=== PATIENT | female | born 1990 | race Caucasian/White ===

== ENCOUNTER 2018-03-10 02:20 | Inpatient (IN) | payer SELFPAY ==
[2018-03-10] MEDS: Lactated Ringers 1,000 ML 50 ML IV ×2 (02:50→03:50)
[2018-03-10 02:52] VITALS: BMI 32.1
--- NOTE | 2018-03-10 03:14 | PCM.HP.OB ---
- Problem List (1) Active labor at term Status: Acute (2) Supervision of normal first Status: Acute History Date of Admission: 03/10/18 Final NANCY: 03/12/18 Gestational age: 39 Weeks and 5 Days History of this : This is a 28 year-old, at 39w5d weeks gestational age presents IAL 6 cm dilated. she has had an uncomplicated with care from a terrazzo layer, Vidya Chopra. Allergies No Known Allergies Allergy (Verified 03/10/18 03:05) Home Medications: Home Medications Ferrous Sulfate [Iron] 325 mg PO DAILY 03/10/18 Folic Acid 03/10/18 Vits [Prenatabs FA ] 03/10/18 Alcohol: None Number of Fetus(es): 1 Heart Tracins moderate variability reactive no decels TOCO Analysis: q4-5 History Past Pregnancies: Past Pregnancies Delivery Date Name GA/Weeks Outcome Route Weight Infant Gender Labor Length Anesthesia Delivery Location Provider FOB Labs: Mom's Problem List Problem Status Onset Code Active labor at term Acute Supervision of normal first Acute Z34.00 Mom's Labs & Results 03/10/18 03/10/18 03/10/18 02:50 02:50 02:50 WBC 10.3 RBC 4.36 Hgb 13.7 Hct 40.2 MCV 92.2 MCH 31.4 MCHC 34.1 RDW 13.1 RDW Differential 44.1 H Plt Count 188 MPV 10.4 Immature Gran % (Auto) 0.200 Neut % (Auto) 73.6 H Lymph % (Auto) 17.3 L [place] % (Auto) 7.4 Eos % (Auto) 1.4 Baso % (Auto) 0.1 Absolute Neuts (auto) 7.6 Absolute Lymphs (auto) 1.79 Total Counted Not Reportable RPR Pending Chlam trachomat DNA PCR Hep Bs Antigen Hepatitis C Ab (EIA) HIV 1&2 Antibody N.gonorrhoeae DNA (PCR) Rubella IgG Antibody Pending Group B Strep DNA Specimen Comment POC Glucose Blood Type Antibody Screen 03/10/18 03/10/18 03/10/18 02:50 02:50 02:50 WBC RBC Hgb Hct MCV MCH MCHC RDW RDW Differential Plt Count MPV Immature Gran % (Auto) Neut % (Auto) Lymph % (Auto) [place] % (Auto) Eos % (Auto) Baso % (Auto) Absolute Neuts (auto) Absolute Lymphs (auto) Total Counted RPR Chlam trachomat DNA PCR Hep Bs Antigen Pending Hepatitis C Ab (EIA) Pending HIV 1&2 Antibody Pending N.gonorrhoeae DNA (PCR) Rubella IgG Antibody Group B Strep DNA Specimen Comment POC Glucose Blood Type Pending Antibody Screen Pending 03/10/18 03/10/18 03/10/18 03:05 03:05 03:31 WBC RBC Hgb Hct MCV MCH MCHC RDW RDW Differential Plt Count MPV Immature Gran % (Auto) Neut % (Auto) Lymph % (Auto) [place] % (Auto) Eos % (Auto) Baso % (Auto) Absolute Neuts (auto) Absolute Lymphs (auto) Total Counted RPR Chlam trachomat DNA PCR Pending Hep Bs Antigen Hepatitis C Ab (EIA) HIV 1&2 Antibody N.gonorrhoeae DNA (PCR) Pending Rubella IgG Antibody Group B Strep DNA Pending Specimen Comment Pending POC Glucose 70 Blood Type Antibody Screen Course Did the patient receive Yes care? Labs Blood Type: A RH: NEGATIVE HbSAg Collected on Admission HIV/AIDS Unknown Group B Strep: Collected on Admission Other Lab Procedures/Results/ labs collected upon admission Comments: Current Obstetrical History Gestational Diabetes No Incompetent Cervix No Infertility No IUGR No Macrosomia No Hypertension/Pre-eclampsia No Placenta Previa/Abruption No PTL/PROM No Uterine anomaly No Oligohydramnios No Polyhydramnios No Multiple gestation No Past Medical History Asthma No Diabetes No Hypertension No Heart disease No Mitral valve prolapse No Neurologic/Seizure disorder/ No Migraines Kidney disease No Liver disease No Varicosities Yes Clotting disorders/Hx of DVT No Thyroid Dysfunction No Other medical diseases No Psychiatric disorders No Major trauma No Abnormal PAP smear No Sleep apnea No Mammogram in the last 2 years No Social History Hx Smoking No Smoking Status Never smoker Expected Delivery Method: Spontaneous Vaginal Review of Systems Constitutional: Denies: Fever, Malaise Eyes: Denies: Blurred vision, Vision Change HEENT: Denies: Head Aches, Visual Changes Cardiovascular: Denies: Chest Pain, Palpitations Respiratory: Denies: Cough, Shortness of Breath, Wheezing Gastrointestinal: Reports: Abdominal Pain. Denies: Diarrhea, Nausea, Vomiting Genitourinary: Denies: Dysuria, Hematuria Musculoskeletal: Denies: Joint Pain, Muscle pain Skin: Denies: Lesions, Rash Neurological: Denies: Blurred vision, Focal weakness, Headaches Psychiatric: Denies: Anxiety, Depression Endocrine: Denies: Heat/ Cold Intolerance Hematologic/ Lymphatic: Denies: Easy Bruising, Easy Bleeding Physical Exam General: Alert, Cooperative, No apparent distress HEENT: Atraumatic, Normocephalic. Negative for: Thyromegaly, Lymphadenopathy Cardiovascular: Regular rate Lungs: Normal air movement Abdomen: Soft, Non Tender, Gravid Neurological: Deep Tendon Reflexes 2+/4 and Symmetrical, Neuro grossly intact. Negative for: Clonus MAJOR SALES ASSOCIATE: Normal external genitalia. Negative for: Vulvar lesions Estimated gestational size: Appropriate for gestational size Presentation: Cephalic Cervix Dilation (cm): 6 Station: 1 Effacement (%): 90 Assessment/Plan All Active Problems Active labor at term (Acute) Supervision of normal first (Acute) This is a 28 year-old, , at 39w5d weeks gestational age presents IAL Patient presents IAL, plan expectant management for , pitocin and AROM. Pain management: declines GBS - rapid sent, no risk factors so no treatment at this time Management of any complications: NPC labs sent I have reviewed the [facility] and made any clinically relevant updates.
[2018-03-10] MEDS: Oxytocin 30 units/NS 500 ml 30 UNITS/500 ML IV.SOLN IV (03:18)
[2018-03-10 03:23] LABS: Absolute Lymphocyte Count 1.79 X10^3/ul (0.83-4.51); Absolute Neutrophil Count 7.6 X10^3/uL (2.0-7.7); Basophil# 0.01 X10^3/uL; Basophil% 0.1 % (0-1); Eosinophil# 0.14 X10^3/uL; Eosinophils% 1.4 % (0-5); Hematocrit 40.2 % (37-47); Hemoglobin 13.7 g/dl (12.0-15.0); Lymphocyte # 1.79 X10^3/ul (4.0); Lymphocyte % 17.3 % (19-41); Mean Corp Hgb Conc 34.1 g/gl (32-36); Mean Corpuscular Hgb 31.4 pg (27.0-32.0); Mean Corpuscular Volume 92.2 fL (81-99); Mean Platelet Vol. 10.4 fl (6.2-12.0); Monocyte# 0.76 X10^3/uL; Monocyte% 7.4 % (0-10); Neutrophil # 7.61 X10^3/uL (2.7-7.7); Neutrophil % 73.6 % (47-70); POSITIVE COUNT NO; POSITIVE DIFFERENTIAL NO; POSITIVE MORPHOLOGY NO; Platelet Count 188 K/mm3 (150-450); RBC Distribution Width CV 13.1 % (11.6-14.6); RBC Distribution Width SD 44.1 fl (35.1-43.9); Red Blood Count 4.36 M/mm3 (4.2-5.4); White Blood Count 10.3 K/mm3 (4.4-11.0)
[2018-03-10 03:36] LABS: Bedside Glucose 70 mg/dL (70-110)
--- NOTE | 2018-03-10 03:46 | HP.PCM_ITS ---
- Problem List (1) Active labor at term Status: Acute (2) Supervision of normal first Status: Acute History Date of Admission: 03/10/18 Final NANCY: 03/12/18 Gestational age: 39 Weeks and 5 Days History of this : This is a 28 year-old, at 39w5d weeks gestational age presents IAL 6 cm dilated. she has had an uncomplicated with care from a optical effects layout person, Vidya Chopra. Allergies No Known Allergies Allergy (Verified 03/10/18 03:05) Home Medications: Home Medications Ferrous Sulfate [Iron] 325 mg PO DAILY 03/10/18 Folic Acid 03/10/18 Vits [Prenatabs FA ] 03/10/18 Alcohol: None Number of Fetus(es): 1 Heart Tracins moderate variability reactive no decels TOCO Analysis: q4-5 History Past Pregnancies: Past Pregnancies Delivery Date Name GA/Weeks Outcome Route Weight Infant Gender Labor Length Anesthesia Delivery Location Provider FOB Labs: Mom's Problem List Problem Status Onset Code Active labor at term Acute Supervision of normal first Acute Z34.00 Mom's Labs & Results 03/10/18 03/10/18 03/10/18 02:50 02:50 02:50 WBC 10.3 RBC 4.36 Hgb 13.7 Hct 40.2 MCV 92.2 MCH 31.4 MCHC 34.1 RDW 13.1 RDW Differential 44.1 H Plt Count 188 MPV 10.4 Immature Gran % (Auto) 0.200 Neut % (Auto) 73.6 H Lymph % (Auto) 17.3 L [place] % (Auto) 7.4 Eos % (Auto) 1.4 Baso % (Auto) 0.1 Absolute Neuts (auto) 7.6 Absolute Lymphs (auto) 1.79 Total Counted Not Reportable RPR Pending Chlam trachomat DNA PCR Hep Bs Antigen Hepatitis C Ab (EIA) HIV 1&2 Antibody N.gonorrhoeae DNA (PCR) Rubella IgG Antibody Pending Group B Strep DNA Specimen Comment POC Glucose Blood Type Antibody Screen 03/10/18 03/10/18 03/10/18 02:50 02:50 02:50 WBC RBC Hgb Hct MCV MCH MCHC RDW RDW Differential Plt Count MPV Immature Gran % (Auto) Neut % (Auto) Lymph % (Auto) [place] % (Auto) Eos % (Auto) Baso % (Auto) Absolute Neuts (auto) Absolute Lymphs (auto) Total Counted RPR Chlam trachomat DNA PCR Hep Bs Antigen Pending Hepatitis C Ab (EIA) Pending HIV 1&2 Antibody Pending N.gonorrhoeae DNA (PCR) Rubella IgG Antibody Group B Strep DNA Specimen Comment POC Glucose Blood Type Pending Antibody Screen Pending 03/10/18 03/10/18 03/10/18 03:05 03:05 03:31 WBC RBC Hgb Hct MCV MCH MCHC RDW RDW Differential Plt Count MPV Immature Gran % (Auto) Neut % (Auto) Lymph % (Auto) [place] % (Auto) Eos % (Auto) Baso % (Auto) Absolute Neuts (auto) Absolute Lymphs (auto) Total Counted RPR Chlam trachomat DNA PCR Pending Hep Bs Antigen Hepatitis C Ab (EIA) HIV 1&2 Antibody N.gonorrhoeae DNA (PCR) Pending Rubella IgG Antibody Group B Strep DNA Pending Specimen Comment Pending POC Glucose 70 Blood Type Antibody Screen Course Did the patient receive Yes care? Labs Blood Type: A RH: NEGATIVE HbSAg Collected on Admission HIV/AIDS Unknown Group B Strep: Collected on Admission Other Lab Procedures/Results/ labs collected upon admission Comments: Current Obstetrical History Gestational Diabetes No Incompetent Cervix No Infertility No IUGR No Macrosomia No Hypertension/Pre-eclampsia No Placenta Previa/Abruption No PTL/PROM No Uterine anomaly No Oligohydramnios No Polyhydramnios No Multiple gestation No Past Medical History Asthma No Diabetes No Hypertension No Heart disease No Mitral valve prolapse No Neurologic/Seizure disorder/ No Migraines Kidney disease No Liver disease No Varicosities Yes Clotting disorders/Hx of DVT No Thyroid Dysfunction No Other medical diseases No Psychiatric disorders No Major trauma No Abnormal PAP smear No Sleep apnea No Mammogram in the last 2 years No Social History Hx Smoking No Smoking Status Never smoker Expected Delivery Method: Spontaneous Vaginal Review of Systems Constitutional: Denies: Fever, Malaise Eyes: Denies: Blurred vision, Vision Change HEENT: Denies: Head Aches, Visual Changes Cardiovascular: Denies: Chest Pain, Palpitations Respiratory: Denies: Cough, Shortness of Breath, Wheezing Gastrointestinal: Reports: Abdominal Pain. Denies: Diarrhea, Nausea, Vomiting Genitourinary: Denies: Dysuria, Hematuria Musculoskeletal: Denies: Joint Pain, Muscle pain Skin: Denies: Lesions, Rash Neurological: Denies: Blurred vision, Focal weakness, Headaches Psychiatric: Denies: Anxiety, Depression Endocrine: Denies: Heat/ Cold Intolerance Hematologic/ Lymphatic: Denies: Easy Bruising, Easy Bleeding Physical Exam General: Alert, Cooperative, No apparent distress HEENT: Atraumatic, Normocephalic. Negative for: Thyromegaly, Lymphadenopathy Cardiovascular: Regular rate Lungs: Normal air movement Abdomen: Soft, Non Tender, Gravid Neurological: Deep Tendon Reflexes 2+/4 and Symmetrical, Neuro grossly intact. Negative for: Clonus MULCHER OPERATOR: Normal external genitalia. Negative for: Vulvar lesions Estimated gestational size: Appropriate for gestational size Presentation: Cephalic Cervix Dilation (cm): 6 Station: 1 Effacement (%): 90 Assessment/Plan All Active Problems Active labor at term (Acute) Supervision of normal first (Acute) This is a 28 year-old, , at 39w5d weeks gestational age presents IAL Patient presents IAL, plan expectant management for , pitocin and AROM. Pain management: declines GBS - rapid sent, no risk factors so no treatment at this time Management of any complications: NPC labs sent I have reviewed the [facility] and made any clinically relevant updates.
[2018-03-10 04:07] LABS: Bacteria 0 SEEN /hpf (None Seen); Mucous, Urine 0 SEEN /hpf (<or=2+)
[2018-03-10 04:11] LABS: Color, Urine Yellow (Yellow); Glucose, Dipstick Normal (Normal); Ketone-Dipstick Negative (Negative); Leukocyte Esterase-Dipstick 500 /ul (Negative); Nitrite-Dipstick Negative (Negative); Occult Blood-Urine 250 /ul (Negative); Protein-Dipstick 30 mg/dl (Negative); Urine Bilirubin Dipstick Negative (Negative); Urine Clarity Sl. Cloudy (Clear); Urine Urobilinogen Normal (Normal); Urine pH 6.5 (5.0 - 8.0)
[2018-03-10 04:14] LABS: Rubella IgG < 0.2 IU/mL
[2018-03-10 04:20] LABS: Amorphous Sediment 1+ URATE; Red Blood Cells-Urine 25-50 SEEN /hpf (0-5); Squamous Epithelial Cells - UA 10-25 SEEN /hpf (5-10); White Blood Cells 25-50 SEEN /hpf (0-5)
[2018-03-10 04:29] LABS: Group B Strep DNA By PCR Negative (Negative); Internal Control PASS; Probe Check PASS; Specimen Processing Control PASS
[2018-03-10 04:41] LABS: HIV - WCH Non-Reactive (Nonreactive)
[2018-03-10 05:04] LABS: Chlamydia Trachomatis by PCR Negative (Negative); Neisserai gonorrhoeae by PCR Negative (Negative); Probe Check PASS; Sample Adequacy Control PASS; Specimen Processing Control PASS
[2018-03-10] MEDS: Oxytocin 30 units/NS 500 ml 30 UNITS/500 ML IV.SOLN 334 UNITS IV (05:31)
--- NOTE | 2018-03-10 05:48 | PCM.OB.VAG ---
- Problem List (1) Active labor at term Status: Acute (2) Supervision of normal first Status: Acute Vaginal Delivery Maternal Presentation: Active Labor 28-year-old at 39 weeks 5 days presents in active labor 6 cm dilated Amniotic Membrane Rupture Type: Artificial Amniotic Fluid Description: Clear Final NANCY: 03/12/18 Gestational age: 39 Weeks and 5 Days Date of Procedure: 03/10/18 Pre-Operative Diagnosis: Pitocin augmentation of labor Post-Operative Diagnosis: Same Surgery/ Procedure Performed: Spontaneous Vaginal Delivery Type of Anesthesia: Local with 1% lidocaine Description of Procedure: Patient began pushing and delivered the head in the TRUDY presentation. The head was delivered atraumatically . The anterior and posterior shoulders delivered without complication followed by the rest of the and the infant was placed on the maternal abdomen. Delayed cord clamping was employed for approximately 60 seconds. Cord was clamped and cut and gentle traction was applied to the cord and the placenta delivered spontaneously immediately following it was noted to be intact with three-vessel cord. The perineum and vagina were inspected and noted to have a second-degree perineal laceration that was injected with 1% lidocaine for anesthesia and was repaired in the usual fashion with 3-0 Vicryl repeat. EBL was 400 cc. Patient and infant tolerated delivery well. Presentation: TRUDY Placental Delivery Description: Spontaneous Placenta Disposition: [facility] Cord Vessel Description: 3 Vessels Cord Entanglement: None Estimated Blood Loss: 400 A gender: Male Episiotomy Description: None Laceration: Perineal Extension/lac, 2nd degree Medications given after delivery: IV Pitocin Complications: None
[2018-03-10] MEDS: Oxytocin 30 units/NS 500 ml 30 UNITS/500 ML IV.SOLN 167 UNITS IV (06:02)
[2018-03-10 12:30] VITALS: BP 121/64; PULSE 68; RESP 16; TEMP 36.9; O2SAT 96
--- NOTE | 2018-03-10 13:44 | DCINST_ITS ---
Discharge Diet: No Restrictions Discharge Activity: Return to Normal Activity, May not drive while taking narcotic pain medications., May Shower May resume sexual activity in: 4-6 weeks Call your doctor if your incision/area has: Continuous Slow Oozing, Sudden Increased Bleeding, Increased Pain/ Swelling, Increased Redness, Foul Smelling Discharge Additional Instructions: If you experience any of the following, contact your healthcare provider. * Bleeding that soaks a pad every hour for 2 hours * Fever 100.4 or higher * Unrelieved incision or abdominal pain * Swelling, redness, discharge or bleeding from your incision or episiotomy site * Your incision begins to separate * Problems urinating (including inability to urinate or burning while urinating). * Visual changes * Severe headache * Flu-like symptoms * Pain or redness in one of both of your breasts * Pain, warmth, tenderness or swelling in your legs, especially the calf area * Frequent nausea and vomiting * Symptoms of depression or anxiety If you experience any of the following, call 911 or go to the nearest Emergency Room. * Chest pain * Problems breathing * Seizure activity * Partial or complete paralysis of a body part, slurred speech, weakness or drooping of the face, or a sudden inability to walk or hold your balance Allergies/Adverse Reactions: Allergies No Known Allergies Allergy (Verified 03/10/18 03:05) Medications to take at Discharge Ferrous Sulfate [Iron] 325 mg PO DAILY 03/10/18 Folic Acid 03/10/18 Vits [Prenatabs FA ] 03/10/18 Please Follow Up With: Pao Dailey MD - [phone] When: Call to make an appointment with your doctor in 6 weeks. If you had elevated Blood pressure or 4th degree laceration you will need to be seen in 2 weeks. Primary Care Physician: Care Physician,No Primary [Primary Care Provider] - Test Results: Test results from this visit will be discussed in further detail at your follow- up appointment, if applicable.
--- NOTE | 2018-03-10 13:44 | PCM.DCVAG ---
Discharge Diet: No Restrictions Discharge Activity: Return to Normal Activity, May not drive while taking narcotic pain medications., May Shower May resume sexual activity in: 4-6 weeks Call your doctor if your incision/area has: Continuous Slow Oozing, Sudden Increased Bleeding, Increased Pain/ Swelling, Increased Redness, Foul Smelling Discharge Additional Instructions: If you experience any of the following, contact your healthcare provider. Bleeding that soaks a pad every hour for 2 hours Fever 100.4 or higher Unrelieved incision or abdominal pain Swelling, redness, discharge or bleeding from your incision or episiotomy site Your incision begins to separate Problems urinating (including inability to urinate or burning while urinating). Visual changes Severe headache Flu-like symptoms Pain or redness in one of both of your breasts Pain, warmth, tenderness or swelling in your legs, especially the calf area Frequent nausea and vomiting Symptoms of depression or anxiety If you experience any of the following, call 911 or go to the nearest Emergency Room. Chest pain Problems breathing Seizure activity Partial or complete paralysis of a body part, slurred speech, weakness or drooping of the face, or a sudden inability to walk or hold your balance Allergies/Adverse Reactions: Allergies No Known Allergies Allergy (Verified 03/10/18 03:05) Medications to take at Discharge Ferrous Sulfate [Iron] 325 mg PO DAILY 03/10/18 Folic Acid 03/10/18 Vits [Prenatabs FA ] 03/10/18 Please Follow Up With: Pao Dailey MD - [phone] When: Call to make an appointment with your doctor in 6 weeks. If you had elevated Blood pressure or 4th degree laceration you will need to be seen in 2 weeks. Primary Care Physician: Care Physician,No Primary [Primary Care Provider] - Test Results: Test results from this visit will be discussed in further detail at your follow-up appointment, if applicable.
[2018-03-11 12:51] LABS: HEPATITIS B SURFACE AG Negative (Negative); Hep C Antibodies <0.1 s/co ratio (0.0-0.9)
[2018-03-13 02:02] LABS: Rapid Plasmin Reagin (RPR) NONREACTIVE (NONREACTIVE)
== END 2018-03-10 16:00 | disposition home or self-care (01) | DRG 807 ==
PROVIDERS: Admitting Provider Obstetrics & Gynecology; Referring Provider Obstetrics & Gynecology; Visit Provider Obstetrics & Gynecology
DX: O70.1 Second degree perineal laceration during delivery (principal); Z3A.39 39 weeks gestation of pregnancy; Z37.0 Single live birth
CPT/HCPCS: 59025; 59050; 76815; 81001; 82962; 85025; 85461; 86592; 86703; 86762; 86803; 86850; 86900; 87081; 87340; 87491; 87591; 87653; 90384; 99218; J7120; G0378; J2790

== ENCOUNTER 2019-05-18 00:10 | Inpatient (IN) | payer SELFPAY ==
[2019-05-18 01:20] VITALS: BMI 29.2
[2019-05-18] MEDS: Lactated Ringers 1,000 ML 50 ML IV (01:25)
[2019-05-18 01:39] LABS: Absolute Lymphocyte Count 2.25 X10^3/uL (0.83-4.51); Absolute Neutrophil Count 7.7 X10^3/uL (2.0-7.7); Basophil# 0.04 X10^3/uL; Basophil% 0.4 % (0-1); Eosinophil# 0.49 X10^3/uL; Eosinophils% 4.4 % (0-5); Hematocrit 37.7 % (37-47); Hemoglobin 12.9 g/dL (12.0-15.0); Lymphocyte # 2.25 X10^3/ul (4.0); Mean Corp Hgb Conc 34.2 g/dL (32-36); Mean Corpuscular Volume 90.6 fL (81-99); Mean Platelet Vol. 10.2 fl (6.2-12.0); Monocyte# 0.73 X10^3/uL; Monocyte% 6.5 % (0-10); NRBC Flagged by Analyzer 0 % (0-5); Neutrophil # 7.67 X10^3/uL (2.7-7.7); Platelet Count 192 K/mm3 (150-450); RBC Distribution Width CV 12.9 % (11.6-14.6); RBC Distribution Width SD 42.1 fl (35.1-43.9); Red Blood Count 4.16 M/mm3 (4.2-5.4); White Blood Count 11.3 K/mm3 (4.4-11.0)
[2019-05-18] MEDS: Oxytocin 30 units/NS 500 ml 30 UNITS/500 ML IV.SOLN IV (02:11)
[2019-05-18 02:58] LABS: Group B Strep DNA By PCR Negative (Negative); Internal Control PASS; Probe Check PASS; Specimen Processing Control PASS
[2019-05-18 03:02] LABS: HIV - WCH Non-Reactive (Nonreactive); Hepatitis B Surface Antigen Non-Reactive (Nonreactive)
[2019-05-18 03:36] LABS: Bacteria 0 SEEN /hpf (None Seen); Mucous, Urine 0 SEEN /hpf (<or=2+); Red Blood Cells-Urine 0 SEEN /hpf (0-5); Squamous Epithelial Cells - UA 0 SEEN /hpf (5-10)
[2019-05-18 03:48] LABS: Color, Urine Yellow (Yellow); Glucose, Dipstick Normal (Normal); Ketone-Dipstick Negative (Negative); Leukocyte Esterase-Dipstick 25 /ul (Negative); Nitrite-Dipstick Negative (Negative); Occult Blood-Urine Negative /ul (Negative); Protein-Dipstick Negative (Negative); Urine Bilirubin Dipstick Negative (Negative); Urine Clarity Clear (Clear); Urine Urobilinogen Normal (Normal)
[2019-05-18 04:02] LABS: White Blood Cells 0-5 SEEN /hpf (0-5)
--- NOTE | 2019-05-18 05:43 | PCM.HP.OB ---
- Problem List (1) PROM (premature rupture of membranes) Status: Acute (2) Prolonged rupture of membranes Status: Acute (3) Active labor at term Status: Acute History Date of Admission: 03/10/18 Final NANCY: 06/06/19 Gestational age: 37 Weeks and 2 Days History of this : This is a 29 year-old, at 37 weeks gestational age presents with spontaneous rupture membranes since Friday morning. Patient denies any fevers abdominal pain or signs of infection. She has been receiving care by Vidya Chopra, the sample display preparer in the community. She has tried natural labor induction tinctures with minimal results. Patient denies regular contractions admits good movement denies any vaginal bleeding. She notes clear loss of fluid.. Allergies No Known Allergies Allergy (Verified 05/18/19 04:10) Home Medications: Home Medications Folic Acid 1 tab PO DAILY 03/10/18 Vits [Prenatabs FA ] 1 tab PO DAILY 03/10/18 Smoking Status: Never smoker Number of Fetus(es): 1 NST - FHR Rate Baby A Baseline: 120 Variability:: Moderate Accelerations:: 15 x 15 Decelerations:: Variable - intermittnent History Past Pregnancies: Past Pregnancies Delivery Date Name GA/ Weeks Outcome Route Wt Sex Labor Length Anesthesia Delivery Location Provider FOB Labs: All Active Problems Active labor at term (Acute) Supervision of normal first (Acute) Mom's Microbiology 05/18/19 Unknown Genital vaginal Group B Streptococcus Culture - Pending Mom's Labs & Results 05/18/19 05/18/19 05/18/19 01:20 01:25 01:25 WBC 11.3 H RBC 4.16 L Hgb 12.9 Hct 37.7 MCV 90.6 MCH 31.0 MCHC 34.2 RDW Std Deviation 42.1 RDW Coeff of Amado 12.9 Plt Count 192 MPV 10.2 Immature Gran % (Auto) 0.700 Neut % (Auto) 68.0 Lymph % (Auto) 20.0 [place] % (Auto) 6.5 Eos % (Auto) 4.4 Baso % (Auto) 0.4 Absolute Neuts (auto) 7.7 Absolute Lymphs (auto) 2.25 Nucleated RBC % 0 Urine Color Urine Clarity Urine pH Ur Specific [place] Urine Protein Urine Glucose (UA) Urine Ketones Urine Occult Blood Urine Nitrite Urine Bilirubin Urine Urobilinogen Ur Leukocyte Esterase Urine RBC Urine WBC Ur Squamous Epith Cells Urine Bacteria Urine Mucus RPR Chlam trachomat DNA PCR Cancelled Hep Bs Antigen HIV 1&2 Antibody N.gonorrhoeae DNA (PCR) Cancelled Rubella IgG Antibody Pending Group B Strep DNA Negative Specimen Comment Not Reportable Blood Type Antibody Screen 05/18/19 05/18/19 05/18/19 01:25 01:25 01:25 WBC RBC Hgb Hct MCV MCH MCHC RDW Std Deviation RDW Coeff of Amado Plt Count MPV Immature Gran % (Auto) Neut % (Auto) Lymph % (Auto) [place] % (Auto) Eos % (Auto) Baso % (Auto) Absolute Neuts (auto) Absolute Lymphs (auto) Nucleated RBC % Urine Color Urine Clarity Urine pH Ur Specific [place] Urine Protein Urine Glucose (UA) Urine Ketones Urine Occult Blood Urine Nitrite Urine Bilirubin Urine Urobilinogen Ur Leukocyte Esterase Urine RBC Urine WBC Ur Squamous Epith Cells Urine Bacteria Urine Mucus RPR Pending Chlam trachomat DNA PCR Hep Bs Antigen Non-Reactive HIV 1&2 Antibody Non-Reactive N.gonorrhoeae DNA (PCR) Rubella IgG Antibody Group B Strep DNA Specimen Comment Blood Type A NEGATIVE Antibody Screen NEGATIVE 05/18/19 05/18/19 03:25 03:25 WBC RBC Hgb Hct MCV MCH MCHC RDW Std Deviation RDW Coeff of Amado Plt Count MPV Immature Gran % (Auto) Neut % (Auto) Lymph % (Auto) [place] % (Auto) Eos % (Auto) Baso % (Auto) Absolute Neuts (auto) Absolute Lymphs (auto) Nucleated RBC % Urine Color Yellow Urine Clarity Clear Urine pH 7.0 Ur Specific [place] 1.010 Urine Protein Negative Urine Glucose (UA) Normal Urine Ketones Negative Urine Occult Blood Negative Urine Nitrite Negative Urine Bilirubin Negative Urine Urobilinogen Normal Ur Leukocyte Esterase 25 H Urine RBC 0 SEEN Urine WBC 0-5 SEEN Ur Squamous Epith Cells 0 SEEN Urine Bacteria 0 SEEN Urine Mucus 0 SEEN RPR Chlam trachomat DNA PCR Pending Hep Bs Antigen HIV 1&2 Antibody N.gonorrhoeae DNA (PCR) Pending Rubella IgG Antibody Group B Strep DNA Specimen Comment Blood Type Antibody Screen Course Did the patient receive No care? Labs HIV/AIDS Non-Reactive Group B Strep: Collected on Admission Current Obstetrical History Gestational Diabetes No Incompetent Cervix No Infertility No IUGR No Macrosomia No Hypertension/Pre-eclampsia No Placenta Previa/Abruption No PTL/PROM No Uterine anomaly No Oligohydramnios No Polyhydramnios No Multiple gestation No Past Medical History Asthma No Diabetes No Hypertension No Heart disease No Mitral valve prolapse No Neurologic/Seizure disorder/ No Migraines Kidney disease No Liver disease No Varicosities No Clotting disorders/Hx of DVT No Thyroid Dysfunction No Other medical diseases No Psychiatric disorders No Major trauma No Abnormal PAP smear No Sleep apnea No Mammogram in the last 2 years No Social History Marital Status: Alleged father Umberto Hx Smoking No Smoking Status Never smoker Expected Delivery Method: Spontaneous Vaginal Review of Systems Constitutional: Denies: Fever, Malaise Eyes: Denies: Blurred vision, Vision Change HEENT: Denies: Head Aches, Visual Changes Cardiovascular: Denies: Chest Pain, Palpitations Respiratory: Denies: Cough, Shortness of Breath, Wheezing Gastrointestinal: Denies: Abdominal Pain, Diarrhea, Nausea, Vomiting Genitourinary: Denies: Dysuria, Hematuria Musculoskeletal: Denies: Joint Pain, Muscle pain Skin: Denies: Lesions, Rash Neurological: Denies: Blurred vision, Focal weakness, Headaches Psychiatric: Denies: Anxiety, Depression Endocrine: Denies: Heat/ Cold Intolerance Hematologic/ Lymphatic: Denies: Easy Bruising, Easy Bleeding Physical Exam General: Alert, Cooperative, No apparent distress HEENT: Atraumatic, Normocephalic. Negative for: Thyromegaly, Lymphadenopathy Cardiovascular: Regular rate Lungs: Normal air movement Abdomen: Soft, Non Tender, Gravid Neurological: Deep Tendon Reflexes 2+/4 and Symmetrical, Neuro grossly intact. Negative for: Clonus DIRECTOR OF VOCATIONAL TRAINING: Normal external genitalia. Negative for: Vulvar lesions Estimated gestational size: Appropriate for gestational size Presentation: Cephalic Assessment/Plan All Active Problems Active labor at term (Acute) Supervision of normal first (Acute) PROM (premature rupture of membranes) (Acute) Prolonged rupture of membranes (Acute) This is a 29 year-old, at 37 weeks gestational age presents IAL with PROM and prolong ROM. Patient presents IOL, plan management for , pitocin Pain management: minimal intervention. GBS unknown- treat based on risk factors, start PCN. Management of any complications: none but limited care, NOB labs drawn, patient low risk based on history I have reviewed the [facility] and made any clinically relevant updates.
[2019-05-18 05:55] LABS: Chlamydia Trachomatis by PCR Negative (Negative); Neisserai gonorrhoeae by PCR Negative (Negative); Probe Check PASS; Sample Adequacy Control PASS; Specimen Processing Control PASS
[2019-05-18] MEDS: Amnioinfusion- 0.9% NS 1,000 ML IV.SOLN. 1000 ML INTRA-UTER (06:30)
[2019-05-18] MEDS: Lactated Ringers 500 ML 999 ML IV (06:31)
[2019-05-18] MEDS: Oxytocin 30 units/NS 500 ml 30 UNITS/500 ML IV.SOLN 334 UNITS IV (07:46)
--- NOTE | 2019-05-18 08:38 | PCM.OPRPT ---
Problem List (1) PROM (premature rupture of membranes) Status: Acute (2) Prolonged rupture of membranes Status: Acute (3) Active labor at term Status: Acute Report of Operation Date of Procedure: 05/18/19 Vaginal Delivery Maternal Presentation: - - prom iol prom and prolonged ROM [id number] Method of Induction: Pitocin Medical Reason for Induction: Premature Rupture of Membranes Amniotic Membrane Rupture Type: Spontaneous at home Amniotic Fluid Description: Clear Final NANCY: 06/06/19 Gestational age: 37 Weeks and 2 Days Date of Procedure: 05/18/19 Pre-Operative Diagnosis: prom Post-Operative Diagnosis: same Surgery/ Procedure Performed: Spontaneous Vaginal Delivery Type of Anesthesia: None Description of Procedure: Patient began pushing and delivered the head in the OTTONIEL presentation. The head was delivered atraumatically and a loose nuchal cord ?1 was identified and the infant easily delivered through. The anterior and posterior shoulders delivered without complication followed by the rest of the infant and the infant was placed on the maternal abdomen. Delayed cord clamping was employed for approximately 60 seconds. Cord was clamped and cut and gentle traction was applied to the cord and the placenta delivered spontaneously immediately following it was noted to be intact with three-vessel cord. The perineum and vagina were inspected and noted to have no laceration. EBL was 100 cc. Patient and tolerated delivery well. Presentation: OTTONIEL Placental Delivery Description: Spontaneous Placenta Disposition: [facility] Cord Vessel Description: 3 Vessels Cord Entanglement: Around neck x 1, loose Estimated Blood Loss: 100 A gender: Male Episiotomy Description: None Laceration: None Medications given after delivery: IV Pitocin Complications: None Multi Select Codes - Urinary/Genital Urinary/Genital CPT Codes: 38665 Vaginal Delivery Only - delivery hospital self pay package
[2019-05-18 09:19] LABS: Rubella IgG < 0.2 IU/mL
[2019-05-18] MEDS: 0.9% Saline Lock 10 ML Syringe IV (11:09)
--- NOTE | 2019-05-18 11:35 | DCINST_ITS ---
Discharge Diet: No Restrictions Discharge Activity: Return to Normal Activity, May not drive while taking narcotic pain medications., May Shower May resume sexual activity in: 4-6 weeks Call your doctor if your incision/area has: Continuous Slow Oozing, Sudden Increased Bleeding, Increased Pain/ Swelling, Increased Redness, Foul Smelling Discharge Additional Instructions: If you experience any of the following, contact your healthcare provider. * Bleeding that soaks a pad every hour for 2 hours * Fever 100.4 or higher * Unrelieved incision or abdominal pain * Swelling, redness, discharge or bleeding from your incision or episiotomy site * Your incision begins to separate * Problems urinating (including inability to urinate or burning while urinating). * Visual changes * Severe headache * Flu-like symptoms * Pain or redness in one of both of your breasts * Pain, warmth, tenderness or swelling in your legs, especially the calf area * Frequent nausea and vomiting * Symptoms of depression or anxiety If you experience any of the following, call 911 or go to the nearest Emergency Room. * Chest pain * Problems breathing * Seizure activity * Partial or complete paralysis of a body part, slurred speech, weakness or drooping of the face, or a sudden inability to walk or hold your balance Allergies/Adverse Reactions: Allergies No Known Allergies Allergy (Verified 05/18/19 04:10) Medications to take at Discharge Folic Acid 1 tab PO DAILY 03/10/18 Vits [Prenatabs FA ] 1 tab PO DAILY 03/10/18 Please Follow Up With: Pao Dailey MD - [phone] When: Call to make an appointment with your doctor in 6 weeks. If you had elevated Blood pressure or 4th degree laceration you will need to be seen in 2 weeks. Primary Care Physician: Care Physician,No Primary [Primary Care Provider] - Test Results: Test results from this visit will be discussed in further detail at your follow- up appointment, if applicable.
--- NOTE | 2019-05-18 11:35 | PCM.DCVAG ---
Discharge Diet: No Restrictions Discharge Activity: Return to Normal Activity, May not drive while taking narcotic pain medications., May Shower May resume sexual activity in: 4-6 weeks Call your doctor if your incision/area has: Continuous Slow Oozing, Sudden Increased Bleeding, Increased Pain/ Swelling, Increased Redness, Foul Smelling Discharge Additional Instructions: If you experience any of the following, contact your healthcare provider. Bleeding that soaks a pad every hour for 2 hours Fever 100.4 or higher Unrelieved incision or abdominal pain Swelling, redness, discharge or bleeding from your incision or episiotomy site Your incision begins to separate Problems urinating (including inability to urinate or burning while urinating). Visual changes Severe headache Flu-like symptoms Pain or redness in one of both of your breasts Pain, warmth, tenderness or swelling in your legs, especially the calf area Frequent nausea and vomiting Symptoms of depression or anxiety If you experience any of the following, call 911 or go to the nearest Emergency Room. Chest pain Problems breathing Seizure activity Partial or complete paralysis of a body part, slurred speech, weakness or drooping of the face, or a sudden inability to walk or hold your balance Allergies/Adverse Reactions: Allergies No Known Allergies Allergy (Verified 05/18/19 04:10) Medications to take at Discharge Folic Acid 1 tab PO DAILY 03/10/18 Vits [Prenatabs FA ] 1 tab PO DAILY 03/10/18 Please Follow Up With: Pao Dailey MD - [phone] When: Call to make an appointment with your doctor in 6 weeks. If you had elevated Blood pressure or 4th degree laceration you will need to be seen in 2 weeks. Primary Care Physician: Care Physician,No Primary [Primary Care Provider] - Test Results: Test results from this visit will be discussed in further detail at your follow-up appointment, if applicable.
[2019-05-18 13:20] VITALS: BP 110/55; PULSE 83; RESP 20; TEMP 37.3
[2019-05-18 16:35] VITALS: BP 104/58; PULSE 86; RESP 18; TEMP 37.1
--- NOTE | 2019-05-18 17:28 | NURSING ---
Pt. aware of non-immune MMR status - declines MMR vaccine
[2019-05-18 18:35] VITALS: BP 116/57; PULSE 100; RESP 18; TEMP 37.1
[2019-05-20 03:16] LABS: Rapid Plasmin Reagin (RPR) NONREACTIVE (NONREACTIVE)
== END 2019-05-18 19:50 | disposition home or self-care (01) | DRG 807 ==
PROVIDERS: Admitting Provider Obstetrics & Gynecology; Visit Provider Obstetrics & Gynecology
DX: O42.92 Full-term premature rupture of membranes, unspecified as to length of time between rupture and onset of labor (principal); O76 Abnormality in fetal heart rate and rhythm complicating labor and delivery; O69.81X0 Labor and delivery complicated by cord around neck, without compression, not applicable or unspecified; Z3A.37 37 weeks gestation of pregnancy; Z37.0 Single live birth
CPT/HCPCS: 59025; 59050; 81001; 85025; 86592; 86703; 86762; 86850; 86900; 86901; 87081; 87340; 87491; 87591; 87653; 99218; J7030; J7120; A4216; G0378